=== PATIENT | male | born 1990 | race Two or more races ===

== ENCOUNTER 2017-10-20 12:46 | Emergency (ER) | payer OTHER ==
[~2017-10-20] VITALS: Ht 175.3 cm; Wt 69.8 kg
[2017-10-20 12:54] VITALS: Ht 175.3 cm; Wt 69.8 kg
[2017-10-20 14:01] LABS: microscopic required? NO
[2017-10-20 14:20] LABS: BASOPHIL % 0.5 % (0-2); PLATELET COUNT 262 x10^3mcL (130-400); RED CELL DISTRIBUTION WIDTH 14.2 % (11.5-14.5)
[2017-10-20 14:20] LABS: urine erythrocyte NEGATIVE (NEGATIVE)
[2017-10-20 14:25] LABS: CARBON DIOXIDE 30.4 mmol/L (21-32); CHLORIDE SERUM 108 mmol/L (98-107); GFR1 > 60 mL/min; GLUCOSE SERUM 146 mg/dL (74-106); POTASSIUM SERUM 3.6 mmol/L (3.5-5.1); SODIUM SERUM 143 mmol/L (136-145)
[2017-10-20 14:29] LABS: ALBUMIN 3.5 g/dL (3.4-5.0); ALKALINE PHOSPHATASE 38 U/L (46-116); ALT/SGPT 31 U/L (16-63); AST/SGOT 14 U/L (15-37); BILIRUBIN TOTAL 0.2 mg/dL (0.20-1.00)
[2017-10-20 14:31] LABS: TOTAL PROTEIN, SERUM 6.1 g/dL (6.4-8.2)
[2017-10-20 14:38] LABS: AMPHETAMINE QUAL UR NONE DETECTED (NEG <=1000)
[2017-10-20 17:19] VITALS: BP 128/78
== END 2017-10-20 17:20 | disposition home or self-care (01) ==
LOC: ED 12:46
PROVIDERS: Emergency Medicine
DX: F32.9 Major depressive disorder, single episode, unspecified (principal); F41.9 Anxiety disorder, unspecified
CPT/HCPCS: 36415; G0480